=== PATIENT | male | born 1985 | race Asian ===

== ENCOUNTER 2016-02-28 18:50 | Emergency (ER) | payer OTHER ==
[~2016-02-28] VITALS: Ht 172.7 cm; Wt 86.2 kg
[2016-02-28 19:59] VITALS: BP 146/91; TEMP 98.7
== END 2016-02-28 20:09 | disposition home or self-care (01) ==
LOC: ED 18:50
DX: K02.9 Dental caries, unspecified (principal); K04.7 Periapical abscess without sinus
CPT/HCPCS: 99281

== ENCOUNTER 2017-08-28 00:12 | Emergency (ER) | payer OTHER ==
[~2017-08-28] VITALS: Ht 172.7 cm; Wt 81.6 kg
[2017-08-28 01:13] VITALS: BP 148/88; TEMP 98.4
== END 2017-08-28 01:15 | disposition home or self-care (01) ==
LOC: ED 00:12
DX: K08.89 Other specified disorders of teeth and supporting structures (principal); H92.02 Otalgia, left ear
CPT/HCPCS: 96372; 99283; J0696; J2175

== ENCOUNTER 2017-11-20 20:54 | Emergency (ER) | payer OTHER ==
[~2017-11-20] VITALS: Ht 172.7 cm; Wt 81.6 kg
[2017-11-20 21:02] VITALS: TEMP 98.8
[2017-11-20 21:43] LABS: PLATELET COUNT 295 K/uL (142-355)
[2017-11-20 21:56] LABS: POTASSIUM 3.6 mmol/L (3.6-5.2); SODIUM 142 mmol/L (136-145)
[2017-11-20 22:33] VITALS: BP 120/90
== END 2017-11-20 22:35 | disposition home or self-care (01) ==
LOC: ED 20:54
DX: M79.1 Myalgia (principal); R00.1 Bradycardia, unspecified
CPT/HCPCS: 36415; 80053; 80307; 81000; 82550; 82553; 84484; 85027; 93005; 99283

== ENCOUNTER 2018-04-03 07:56 | Emergency (ER) | payer OTHER ==
[~2018-04-03] VITALS: Ht 172.7 cm; Wt 90.7 kg
[2018-04-03 08:00] VITALS: TEMP 98.1
[2018-04-03 09:36] VITALS: BP 148/72
== END 2018-04-03 09:38 | disposition home or self-care (01) ==
LOC: ED 07:56
DX: S39.012A Strain of muscle, fascia and tendon of lower back, initial encounter (principal)
CPT/HCPCS: 81000; 96372; 99283; J1885

== ENCOUNTER 2018-09-16 23:20 | Emergency (ER) | payer OTHER ==
[~2018-09-16] VITALS: Ht 172.7 cm; Wt 90.7 kg
[2018-09-17 00:21] VITALS: BP 135/90; TEMP 97.8
== END 2018-09-17 00:21 | disposition home or self-care (01) ==
LOC: ED 23:20
DX: T63.461A Toxic effect of venom of wasps, accidental (unintentional), initial encounter (principal); L03.113 Cellulitis of right upper limb
CPT/HCPCS: 96372; 99283; J2930

== ENCOUNTER 2022-02-02 17:21 | Emergency (ER) | payer BC ==
[~2022-02-02] VITALS: Ht 172.7 cm; Wt 95.3 kg
[2022-02-02 17:25] VITALS: BP 143/92; TEMP 98.7
== END 2022-02-02 18:00 | disposition home or self-care (01) ==
LOC: ED 17:21
DX: S05.02XA Injury of conjunctiva and corneal abrasion without foreign body, left eye, initial encounter (principal); X58.XXXA Exposure to other specified factors, initial encounter; Y92.89 Other specified places as the place of occurrence of the external cause
CPT/HCPCS: 90471; 90715; 99284

== ENCOUNTER 2022-03-01 17:35 | Emergency (ER) | payer BC ==
[~2022-03-01] VITALS: Ht 172.7 cm; Wt 94.3 kg
[2022-03-01 18:28] LABS: PLATELET COUNT 340 K/uL (142-355)
[2022-03-01 19:12] LABS: POTASSIUM 4.2 mmol/L (3.6-5.2)
[2022-03-01 20:35] VITALS: BP 128/79; TEMP 98.8
== END 2022-03-01 20:40 | disposition home or self-care (01) ==
LOC: ED 17:35
PROVIDERS: Emergency Medicine
DX: R10.32 Left lower quadrant pain (principal)
CPT/HCPCS: 80048; 85027; 99283; Q9963